=== PATIENT | male | born 1970 | race Caucasian/White ===

== ENCOUNTER 2017-08-09 12:19 | Emergency (ER) | payer MEDICAID, SELFPAY ==
[2017-08-09 12:20] VITALS: BP 124/93; PULSE 95; RESP 16; TEMP 36.4; O2SAT 95; BMI 21.2
--- NOTE | 2017-08-09 12:49 | RAD_ITS ---
STUDY: X-RAY - UNILATERAL RIBS ( LEFT ) WITH CHEST REASON FOR EXAM: Male, 47 years old. Left-sided flank pain TECHNIQUE - RIBS: 4 view(s) of the ribs. TECHNIQUE - CHEST: Single PA view of the chest. COMPARISON: 2013 FINDINGS - RIBS: Normal visualized ribs without a demonstrated fracture. FINDINGS - CHEST: The lungs are clear and expanded. There is no demonstrated pleural abnormality. Normal size heart. Normal mediastinum and joshua. Normal visualized pulmonary arteries. Normal visualized aortic arch and descending thoracic aorta. Normal visualized thoracic spine. Normal visualized ribs, clavicles, and shoulders. There is no demonstrated abnormality of the visualized soft tissue structures of the upper abdomen. RAD/Ribs Uni Min 3V w/PA Chest IMPRESSION: RIBS: Normal x-ray examination of the ribs. CHEST: Normal x-ray examination of the chest. Electronically Signed: Steven Marti MD at 13:31 EDT , Service support ,
[2017-08-09] MEDS: HYDROcodone Bitartrate/Apap 5/325 Tablet PO (12:56)
--- NOTE | 2017-08-09 14:04 | ED.DCSUM_ITS ---
- ER Visit Summary Date of Service: 08/09/17 Chief Complaint: Chest pain History of Present Illness: The patient is a 47 M left side chest and rib pain. Symptoms started 4 days ago. The patient was coughing and heard a pop. He has had severe pain in his left chest and left back since then. Worse with moving and breathing. He has had a cough. He is a smoker. He denies any history of heart disease. Denies any history of PE or dissection. Physical Examination: Vital signs unremarkable. Patient is sitting and appears uncomfortable, holding his chest on the left. Heart is regular. He does have some left chest tenderness over the posterior axillary line and the posterior middle thorax ribs. No crepitus. No deformities. Skin appears normal. Lung sounds normal. Neurovascularly intact distally in all extremities. Abdomen soft. Test Results: Rib series and chest x-ray show no acute abnormalities. Emergency Department Course and Treatment: Patient had pain medicine while awaiting results. Imaging was negative. There is nothing to suggest that this is PE, dissection, or a cardiac pathology. The symptoms started suddenly immediately after coughing. They are somatic in nature. Patient has risk factors for other underlying medical problems and should return for any new or worsening symptoms. He will be prescribed naproxen and Flexeril. Treatment Plan: Above Disposition: Discharged Impression: 1. Left chest wall pain This note was generated with [email or web address] dictation software. It may contain incorrect words, spelling, and punctuation that were not noted in review of the chart prior to signing ED Disposition - Plan for ED Patient: Chief Complaint: Chest Other Referrals: Jh Handley MD [Primary Care Provider] -
--- NOTE | 2017-08-09 14:05 | ED.DEP ---
ED Disposition - Plan for ED Patient: Chief Complaint: Chest Other Instructions: ED Strain Chest Wall Prescriptions: Naproxen [Naprosyn] 500 mg PO BID PRN #20 tab Cyclobenzaprine [Flexeril] 10 mg PO TID PRN #20 tab PRN Reason: Muscle Spasm Referrals: Jh Handley MD [Primary Care Provider] -
== END 2017-08-09 14:19 | disposition home or self-care (01) ==
LOC: ED 13:24
PROVIDERS: Emergency Provider Emergency Medicine; Family Provider Family Medicine; PCP Family Medicine
DX: R07.89 Other chest pain (principal); R05 Cough; Z72.0 Tobacco use
CPT/HCPCS: 71101; 99282

== ENCOUNTER 2018-10-19 16:32 | Emergency (ER) | payer MEDICAID, SELFPAY ==
[2018-10-19 16:33] VITALS: BP 106/73; PULSE 96; RESP 16; TEMP 37.2; O2SAT 95; BMI 19.8
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
[2018-10-19] MEDS: HYDROcodone Bitartrate/Apap 5/325 Tablet PO (17:44)
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
[2018-10-19 18:56] VITALS: RESP 16
--- NOTE | 2018-10-19 18:58 | ED.RN ---
REVIEWED D/C INSTRUCTIONS, FOLLOW UP CARE, PRESCRIPTION, AND S/S THAT WOULD WARRANT A RETURN TO THE ED WITH PT. PT VERBALIZED AN UNDERSTANDING AND DENIES FURTHER QUESTIONS FOR THIS RN. PT SKIN P/W/D, RESP EVEN AND UNLABORED, PT A&O X 3, NO DISTRESS NOTED. PT AMBULATED OUT OF ED USING CRUTCHES.
== END 2018-10-19 19:00 | disposition home or self-care (01) ==
LOC: ED 17:06
PROVIDERS: Emergency Provider Emergency Medicine; Family Provider Family Medicine; PCP Family Medicine
DX: S16.1XXA Strain of muscle, fascia and tendon at neck level, initial encounter (principal); S06.0X0A Concussion without loss of consciousness, initial encounter; M25.561 Pain in right knee; S20.411A Abrasion of right back wall of thorax, initial encounter; V19.9XXA Pedal cyclist (driver) (passenger) injured in unspecified traffic accident, initial encounter; Y93.9 Activity, unspecified; Y92.9 Unspecified place or not applicable; Z72.0 Tobacco use
CPT/HCPCS: 70450; 71101; 72125; 73564; 99284